=== PATIENT | male | born 1945 | race Caucasian/White ===

== ENCOUNTER 2022-05-22 21:20 | Inpatient (IN) | payer MEDICARE ==
[2022-05-22] MEDS ORDERED: Ondansetron ODT 4 MG TAB SL PRN (23:45)
[2022-05-22] MEDS ORDERED: Ondansetron PF 4 MG/2 ML Vial IVP PRN (23:45)
[2022-05-22 23:48] VITALS: BMI 27.6
[2022-05-22] MEDS ORDERED: Sodium Chloride 0.9% 1,000 ML IV SCH (23:59)
[2022-05-23] MEDS ORDERED: Acetaminophen 650 MG Suppository PR PRN (01:54)
[2022-05-23] MEDS ORDERED: Sodium Chloride 0.9% 1,000 ML IV SCH (01:56)
[2022-05-23] MEDS ORDERED: Morphine 4 MG/ML VIAL SLOW IVP SCH (02:15)
[2022-05-23] MEDS: Sodium Chloride 0.9% 1,000 ML IV SCH ×2 (02:16→06:47)
[2022-05-23] MEDS ORDERED: Promethazine HCl 12.5 MG in Sodium Chloride 0.9% 50 ML IVPB PRN (04:51)
[2022-05-23 05:45] LABS: #Lymphocytes 0.9 thou/uL (1.20-3.40); #Monocytes 0.9 thou/uL (0.11-0.59); #Neutrophils 7.6 thou/uL (1.40-6.50); %Basophils 0.2 % (0.0-1.0); %Eosinophils 0.1 % (0.0-10.0); %Lymphocytes 9.2 % (21.0-51.0); %Monocytes 9.1 % (0.0-10.0); %Neutrophils 81.4 % (42.0-75.0); Mean Corpuscular HGB CONC 33.5 g/dL (32.0-36.0); Mean Corpuscular Hemoglobin 29.8 pg (27.0-31.0); Mean Corpuscular Volume 88.9 fl (78.0-98.0); Mean Platelet Volume 7.7 fL (7.4-10.4); Platelet Count 182 10x3/uL (130-400); RBC Distribution Width 11.3 % (11.5-14.5); Red Blood Cell (RBC) Count 5.05 mill/uL (4.70-6.10); White Blood Cell (WBC) Count 9.3 10x3/uL (4.8-10.8)
[2022-05-23 06:09] LABS: Anion Gap 19 mmol/L (10-20); BUN (Urea Nitrogen) 8 mg/dL (8.4-25.7); Calc. Creatinine Clearance 95 mL/min (70-130); Calcium 8.9 mg/dL (7.8-10.44); Carbon Dioxide 25 mmol/L (23-31); Chloride 96 mmol/L (98-107); Estimated GFR 89; Glucose 131 mg/dL (83-110); Sodium 138 mmol/L (136-145)
[2022-05-23 06:11] LABS: Potassium 2.4 mmol/L (3.5-5.1)
[2022-05-23 06:13] LABS: ALT (SGPT) 23 U/L (8-55); AST (SGOT) 25 U/L (5-34); Albumin 3.6 g/dL (3.4-4.8); Alkaline Phosphatase 49 U/L (40-110); Bilirubin, Direct 0.6 mg/dL (0.1-0.3); Bilirubin, Total 1.5 mg/dL (0.2-1.2); Protein, Total 5.9 g/dL (5.8-8.1)
[2022-05-23] MEDS ORDERED: Potassium Chloride 20 MEQ in Premix Bag 1 BAG IVPB SCH (06:30)
[2022-05-23] MEDS ORDERED: Electrolyte Replacement Protocol 1 EACH FS SCH (06:30)
[2022-05-23] MEDS ORDERED: Magnesium 2 GM/50 ML(in water) 2 GM in Premix Bag 1 BAG IVPB SCH (06:30)
[2022-05-23 07:06] LABS: Magnesium 1.5 mg/dL (1.6-2.6)
[2022-05-23] MEDS ORDERED: Potassium Chloride 40 MEQ in Sodium Chloride 0.9% 500 ML IVPB SCH (07:15)
[2022-05-23] MEDS ORDERED: Prochlorperazine Maleate 5 MG TAB PO PRN (08:39)
[2022-05-23] MEDS ORDERED: Potassium Chloride 20 MEQ TAB PO SCH (09:00)
[2022-05-23] MEDS ORDERED: Electrolyte Replacement Protocol FS PRN (09:15)
[2022-05-23] MEDS ORDERED: MD-Gastroview 120 ML BOT ONE (09:29)
[2022-05-23] MEDS: HYDROcodone/Acetaminophen 10/325 mg Tablet PO PRN ×2 (09:38→20:07)
[2022-05-23] MEDS: Ondansetron PF 4 MG/2 ML Vial IVP PRN (09:38)
[2022-05-23] MEDS: Gabapentin 300 MG CAP PO SCH (09:39)
[2022-05-23] MEDS: Ezetimibe 10 MG TAB PO SCH (09:39)
[2022-05-23] MEDS: Potassium Chloride 20 MEQ TAB PO SCH ×2 (09:40→09:52)
[2022-05-23] MEDS: Chlorthalidone 25 MG TAB PO SCH (09:40)
[2022-05-23] MEDS: Tamsulosin HCl 0.4 MG CAP PO SCH (09:40)
[2022-05-23 11:24] LABS: Anion Gap 16 mmol/L (10-20); BUN (Urea Nitrogen) 8 mg/dL (8.4-25.7); Calc. Creatinine Clearance 90 mL/min (70-130); Calcium 8.7 mg/dL (7.8-10.44); Carbon Dioxide 29 mmol/L (23-31); Chloride 96 mmol/L (98-107); Estimated GFR 88; Glucose 138 mg/dL (83-110); Sodium 139 mmol/L (136-145)
[2022-05-23 11:31] LABS: Potassium 2.4 mmol/L (3.5-5.1)
[2022-05-23] MEDS ORDERED: Morphine 2 MG/ML VIAL SLOW IVP PRN (12:00)
[2022-05-23] MEDS ORDERED: Potassium Chloride 10 MEQ in Premix Bag 1 BAG IVPB SCH ×2 (12:15→15:00)
[2022-05-23 15:07] LABS: Anion Gap 20 mmol/L (10-20); BUN (Urea Nitrogen) 7 mg/dL (8.4-25.7); Calc. Creatinine Clearance 97 mL/min (70-130); Calcium 8.6 mg/dL (7.8-10.44); Carbon Dioxide 24 mmol/L (23-31); Chloride 97 mmol/L (98-107); Estimated GFR 90; Glucose 135 mg/dL (83-110); Magnesium 1.9 mg/dL (1.6-2.6); Phosphorus 2.7 mg/dL (2.3-4.7); Potassium 2.7 mmol/L (3.5-5.1); Sodium 138 mmol/L (136-145)
[2022-05-23] MEDS ORDERED: Famotidine/PF 20 mg/2ml Vial SLOW IVP SCH (15:17)
[2022-05-23] MEDS ORDERED: methylPREDNISolone Sod Succ 40 MG VIAL IVP SCH (15:19)
[2022-05-23] MEDS ORDERED: diphenhydrAMINE 50 MG/ML VIAL IVP SCH (15:30)
[2022-05-23] MEDS ORDERED: Morphine 2 MG/ML VIAL SLOW IVP SCH (16:15)
[2022-05-23] MEDS: Labetalol HCl 100 MG/20 ML VIAL SLOW IVP PRN ×2 (16:18→20:05)
[2022-05-23] MEDS: Magnesium 2 GM/50 ML(in water) 2 GM in Premix Bag 1 BAG IVPB SCH ×2 (19:44→20:03)
[2022-05-23] MEDS: Potassium Chloride 20 MEQ in Premix Bag 1 BAG IVPB SCH ×3 (19:44→23:39)
[2022-05-23] MEDS: Rosuvastatin 10 MG TAB PO SCH (20:07)
[2022-05-23] MEDS: Pantoprazole 40 MG VIAL IVP SCH (20:07)
[2022-05-23] MEDS: traZODone HCl 50 MG TAB PO SCH (20:07)
[2022-05-23] MEDS: Potassium Chloride 10 MEQ in Premix Bag 1 BAG IVPB SCH ×2 (20:29→20:30)
[2022-05-23 20:37] LABS: Potassium 3.1 mmol/L (3.5-5.1)
[2022-05-23] MEDS ORDERED: Scopolamine 1.5 mg/72 hour Patch TOP SCH (21:00)
[2022-05-24] MEDS: Potassium Chloride 20 MEQ in Premix Bag 1 BAG IVPB SCH ×5 (01:58→21:30)
[2022-05-24] MEDS: HYDROcodone/Acetaminophen 10/325 mg Tablet PO PRN ×2 (02:03→18:50)
[2022-05-24] MEDS: Sodium Chloride 0.9% 1,000 ML IV SCH ×3 (02:06→21:29)
[2022-05-24] MEDS: Labetalol HCl 100 MG/20 ML VIAL SLOW IVP PRN ×3 (04:35→16:57)
[2022-05-24 05:42] LABS: #Lymphocytes 0.6 thou/uL (1.20-3.40); #Monocytes 0.5 thou/uL (0.11-0.59); #Neutrophils 6.4 thou/uL (1.40-6.50); %Eosinophils 0.1 % (0.0-10.0); %Lymphocytes 7.8 % (21.0-51.0); %Monocytes 7.1 % (0.0-10.0); Hemoglobin 14.5 g/dL (14.0-18.0); Mean Corpuscular HGB CONC 34.2 g/dL (32.0-36.0); Mean Corpuscular Hemoglobin 30.7 pg (27.0-31.0); Mean Corpuscular Volume 89.7 fl (78.0-98.0); Mean Platelet Volume 7.7 fL (7.4-10.4); Platelet Count 145 10x3/uL (130-400); RBC Distribution Width 11.6 % (11.5-14.5); Red Blood Cell (RBC) Count 4.74 mill/uL (4.70-6.10); White Blood Cell (WBC) Count 7.5 10x3/uL (4.8-10.8)
[2022-05-24] MEDS ORDERED: Ketorolac Tromethamine 30 MG/ML VIAL IVP SCH (05:45)
[2022-05-24 06:01] LABS: Anion Gap 16 mmol/L (10-20); BUN (Urea Nitrogen) 11 mg/dL (8.4-25.7); Calc. Creatinine Clearance 85 mL/min (70-130); Calcium 8.9 mg/dL (7.8-10.44); Carbon Dioxide 30 mmol/L (23-31); Chloride 101 mmol/L (98-107); Estimated GFR 83; Glucose 163 mg/dL (83-110); Magnesium 2.3 mg/dL (1.6-2.6); Potassium 2.7 mmol/L (3.5-5.1); Sodium 144 mmol/L (136-145)
[2022-05-24] MEDS ORDERED: Potassium Chloride 20 MEQ TAB PO SCH (08:00)
[2022-05-24] MEDS: Pantoprazole 40 MG VIAL IVP SCH ×2 (08:26→21:29)
[2022-05-24] MEDS: Ondansetron PF 4 MG/2 ML Vial IVP PRN ×2 (08:42→21:28)
[2022-05-24] MEDS: Tamsulosin HCl 0.4 MG CAP PO SCH (11:59)
[2022-05-24] MEDS ORDERED: Potassium Phosphate 30 MMOL in Sodium Chloride 0.9% 250 ML 250 ML IVPB SCH (12:00)
[2022-05-24] MEDS: Scopolamine 1.5 mg/72 hour Patch TD SCH (12:08)
[2022-05-24 16:23] LABS: Anion Gap 11 mmol/L (10-20); BUN (Urea Nitrogen) 13 mg/dL (8.4-25.7); Calc. Creatinine Clearance 80 mL/min (70-130); Calcium 8.8 mg/dL (7.8-10.44); Carbon Dioxide 33 mmol/L (23-31); Chloride 102 mmol/L (98-107); Estimated GFR 77; Glucose 217 mg/dL (83-110); Magnesium 2.1 mg/dL (1.6-2.6); Phosphorus 2.5 mg/dL (2.3-4.7); Potassium 2.8 mmol/L (3.5-5.1); Sodium 143 mmol/L (136-145)
[2022-05-24] MEDS: Potassium Chloride 20 MEQ TAB PO SCH (16:55)
[2022-05-24] MEDS ORDERED: Potassium Chloride 20 MEQ in Premix Bag 1 BAG IVPB SCH (18:15)
[2022-05-24] MEDS: traZODone HCl 50 MG TAB PO SCH (21:29)
[2022-05-24] MEDS: Rosuvastatin 10 MG TAB PO SCH (21:29)
[2022-05-25] MEDS: HYDROcodone/Acetaminophen 10/325 mg Tablet PO PRN ×2 (01:11→06:37)
[2022-05-25] MEDS: Potassium Chloride 20 MEQ in Premix Bag 1 BAG IVPB SCH ×2 (01:11→05:40)
[2022-05-25] MEDS: Ondansetron PF 4 MG/2 ML Vial IVP PRN ×3 (04:20→22:01)
[2022-05-25 05:44] LABS: #Lymphocytes 0.9 thou/uL (1.20-3.40); #Monocytes 0.6 thou/uL (0.11-0.59); #Neutrophils 4.6 thou/uL (1.40-6.50); %Basophils 0.7 % (0.0-1.0); %Eosinophils 0.8 % (0.0-10.0); %Lymphocytes 14.9 % (21.0-51.0); %Monocytes 9.3 % (0.0-10.0); %Neutrophils 74.4 % (42.0-75.0); Hemoglobin 13.5 g/dL (14.0-18.0); Mean Corpuscular HGB CONC 33.6 g/dL (32.0-36.0); Mean Corpuscular Hemoglobin 30.6 pg (27.0-31.0); Mean Platelet Volume 8.1 fL (7.4-10.4); Platelet Count 144 10x3/uL (130-400); RBC Distribution Width 11.6 % (11.5-14.5); Red Blood Cell (RBC) Count 4.42 mill/uL (4.70-6.10); White Blood Cell (WBC) Count 6.2 10x3/uL (4.8-10.8)
[2022-05-25 06:12] LABS: Anion Gap 10 mmol/L (10-20); BUN (Urea Nitrogen) 12 mg/dL (8.4-25.7); Calc. Creatinine Clearance 95 mL/min (70-130); Calcium 8.4 mg/dL (7.8-10.44); Carbon Dioxide 35 mmol/L (23-31); Chloride 103 mmol/L (98-107); Estimated GFR 89; Glucose 136 mg/dL (83-110); Potassium 3.3 mmol/L (3.5-5.1); Sodium 145 mmol/L (136-145)
[2022-05-25] MEDS: Sodium Chloride 0.9% 1,000 ML IV SCH ×2 (06:38→17:44)
[2022-05-25] MEDS ORDERED: Magnesium 2 GM/50 ML(in water) 2 GM in Premix Bag 1 BAG IVPB SCH (08:00)
[2022-05-25] MEDS: Potassium Chloride 20 MEQ TAB PO SCH ×2 (08:54→17:42)
[2022-05-25] MEDS: Floranex 1 GM Packet PO SCH (08:55)
[2022-05-25] MEDS: Pantoprazole 40 MG VIAL IVP SCH (08:56)
[2022-05-25] MEDS: Ezetimibe 10 MG TAB PO SCH (08:56)
[2022-05-25] MEDS: Tamsulosin HCl 0.4 MG CAP PO SCH (08:57)
[2022-05-25] MEDS: Chlorthalidone 25 MG TAB PO SCH (09:01)
[2022-05-25] MEDS: traMADol HCl 50 MG TAB PO PRN ×2 (12:28→21:58)
[2022-05-25 14:32] LABS: Potassium 3.5 mmol/L (3.5-5.1)
[2022-05-25] MEDS: Gabapentin 300 MG CAP PO SCH ×2 (16:19→22:01)
[2022-05-25] MEDS: traZODone HCl 50 MG TAB PO SCH (22:01)
[2022-05-25] MEDS: Rosuvastatin 10 MG TAB PO SCH (22:01)
[2022-05-26] MEDS: Sodium Chloride 0.9% 1,000 ML IV SCH ×2 (03:25→13:16)
[2022-05-26] MEDS: traMADol HCl 50 MG TAB PO PRN ×3 (06:12→19:59)
[2022-05-26 06:39] LABS: #Eosinphils 0.3 thou/uL (0.0-0.7); #Lymphocytes 1.2 thou/uL (1.20-3.40); #Monocytes 0.5 thou/uL (0.11-0.59); #Neutrophils 3.8 thou/uL (1.40-6.50); %Basophils 0.7 % (0.0-1.0); %Lymphocytes 20.4 % (21.0-51.0); %Monocytes 7.7 % (0.0-10.0); %Neutrophils 65.2 % (42.0-75.0); Hemoglobin 13.9 g/dL (14.0-18.0); Mean Corpuscular HGB CONC 33.2 g/dL (32.0-36.0); Mean Corpuscular Hemoglobin 30.9 pg (27.0-31.0); Mean Corpuscular Volume 93.3 fl (78.0-98.0); Mean Platelet Volume 9.1 fL (7.4-10.4); Platelet Count 128 10x3/uL (130-400); RBC Distribution Width 11.6 % (11.5-14.5); Red Blood Cell (RBC) Count 4.49 mill/uL (4.70-6.10); White Blood Cell (WBC) Count 5.8 10x3/uL (4.8-10.8)
[2022-05-26] MEDS: Tamsulosin HCl 0.4 MG CAP PO SCH (08:37)
[2022-05-26] MEDS: Potassium Chloride 20 MEQ TAB PO SCH ×2 (08:37→18:06)
[2022-05-26] MEDS: HYDROcodone/Acetaminophen 10/325 mg Tablet PO PRN ×3 (08:37→21:37)
[2022-05-26] MEDS: Ezetimibe 10 MG TAB PO SCH (08:37)
[2022-05-26] MEDS: Gabapentin 300 MG CAP PO SCH ×3 (08:38→21:40)
[2022-05-26] MEDS: Labetalol HCl 100 MG/20 ML VIAL SLOW IVP PRN ×2 (08:39→13:17)
[2022-05-26] MEDS: Floranex 1 GM Packet PO SCH (09:41)
[2022-05-26] MEDS: Chlorthalidone 25 MG TAB PO SCH (09:41)
[2022-05-26 11:24] LABS: Lactic Acid 1.3 mmol/L (0.5-2.2)
[2022-05-26 11:36] LABS: Anion Gap 13 mmol/L (10-20); BUN (Urea Nitrogen) 9 mg/dL (8.4-25.7); Calc. Creatinine Clearance 102 mL/min (70-130); Carbon Dioxide 21 mmol/L (23-31); Chloride 103 mmol/L (98-107); Estimated GFR 91; Glucose 182 mg/dL (83-110); Magnesium 1.7 mg/dL (1.6-2.6); Potassium 4.3 mmol/L (3.5-5.1); Sodium 133 mmol/L (136-145)
[2022-05-26] MEDS ORDERED: Magnesium 2 GM/50 ML(in water) 2 GM in Premix Bag 1 BAG IVPB SCH (13:45)
[2022-05-26] MEDS ORDERED: hydrALAZINE 20 MG/ML VIAL SLOW IVP PRN (14:16)
[2022-05-26] MEDS ORDERED: NIFEdipine XL 60 MG TAB PO SCH (14:30)
[2022-05-26] MEDS: NIFEdipine XL 60 MG TAB PO SCH (15:04)
[2022-05-26] MEDS: Ondansetron PF 4 MG/2 ML Vial IVP PRN ×2 (15:16→21:59)
[2022-05-26] MEDS: Rosuvastatin 10 MG TAB PO SCH (21:39)
[2022-05-26] MEDS: traZODone HCl 50 MG TAB PO SCH (21:40)
[2022-05-26] MEDS ORDERED: HumaLOG 300 UNITS/3 ML VIAL SC PRN ×2 (22:56)
[2022-05-26] MEDS ORDERED: Dextrose 50% Abboject 50 ML SYRINGE SLOW IVP PRN (22:56)
[2022-05-26] MEDS ORDERED: Dextrose 5% in Water 1,000 ML IV PRN (22:56)
[2022-05-27] MEDS: Sodium Chloride 0.9% 1,000 ML IV SCH ×2 (00:08→08:33)
[2022-05-27] MEDS: traMADol HCl 50 MG TAB PO PRN ×2 (03:31→10:03)
[2022-05-27] MEDS: HYDROcodone/Acetaminophen 10/325 mg Tablet PO PRN ×2 (05:32→14:16)
[2022-05-27 06:10] LABS: #Basophils 0.1 thou/uL (0.0-0.2); #Eosinphils 0.3 thou/uL (0.0-0.7); #Lymphocytes 1.1 thou/uL (1.20-3.40); #Monocytes 0.4 thou/uL (0.11-0.59); #Neutrophils 2.7 thou/uL (1.40-6.50); %Basophils 1.4 % (0.0-1.0); %Eosinophils 6.4 % (0.0-10.0); %Lymphocytes 23.7 % (21.0-51.0); %Monocytes 9.1 % (0.0-10.0); %Neutrophils 59.6 % (42.0-75.0); Hemoglobin 13.6 g/dL (14.0-18.0); Mean Corpuscular HGB CONC 34.3 g/dL (32.0-36.0); Mean Corpuscular Hemoglobin 31.6 pg (27.0-31.0); Mean Corpuscular Volume 92.2 fl (78.0-98.0); Mean Platelet Volume 8.2 fL (7.4-10.4); Platelet Count 119 10x3/uL (130-400); RBC Distribution Width 11.4 % (11.5-14.5); Red Blood Cell (RBC) Count 4.32 mill/uL (4.70-6.10); White Blood Cell (WBC) Count 4.5 10x3/uL (4.8-10.8)
[2022-05-27 06:33] LABS: Anion Gap 10 mmol/L (10-20); BUN (Urea Nitrogen) 6 mg/dL (8.4-25.7); Calc. Creatinine Clearance 106 mL/min (70-130); Calcium 8.1 mg/dL (7.8-10.44); Carbon Dioxide 32 mmol/L (23-31); Chloride 99 mmol/L (98-107); Estimated GFR 92; Glucose 124 mg/dL (83-110); Potassium 3.5 mmol/L (3.5-5.1); Sodium 137 mmol/L (136-145)
[2022-05-27] MEDS: NIFEdipine XL 60 MG TAB PO SCH (08:31)
[2022-05-27] MEDS: Tamsulosin HCl 0.4 MG CAP PO SCH (08:32)
[2022-05-27] MEDS: Gabapentin 300 MG CAP PO SCH ×2 (08:32→14:15)
[2022-05-27] MEDS: Ezetimibe 10 MG TAB PO SCH (08:32)
[2022-05-27] MEDS: Potassium Chloride 20 MEQ TAB PO SCH (08:32)
[2022-05-27] MEDS: Chlorthalidone 25 MG TAB PO SCH (08:33)
[2022-05-27] MEDS: Floranex 1 GM Packet PO SCH (08:33)
[2022-05-27] MEDS: Scopolamine 1.5 mg/72 hour Patch TD SCH (10:05)
[2022-05-27 13:17] VITALS: BP 155/75; TEMP 97.5
[2022-05-27] MEDS ORDERED: Metoclopramide HCl 10 MG/2 ML VIAL IVP SCH (14:00)
== END 2022-05-27 15:18 | disposition home or self-care (01) | DRG 74 ==
LOC: MSONC 21:20
PROVIDERS: ADMIT Internal Medicine; ATTEND Internal Medicine
PROC: 0D9670Z Drainage of Stomach with Drainage Device, Via Natural or Artificial Opening (ICD-10-PCS; principal; 2022-05-22)
DX: E11.43 Type 2 diabetes mellitus with diabetic autonomic (poly)neuropathy (principal); K56.7 Ileus, unspecified; K31.1 Adult hypertrophic pyloric stenosis; T40.2X5A Adverse effect of other opioids, initial encounter; Z66 Do not resuscitate; I10 Essential (primary) hypertension; G89.29 Other chronic pain; M54.9 Dorsalgia, unspecified; N28.89 Other specified disorders of kidney and ureter; E87.6 Hypokalemia; E86.0 Dehydration; R11.2 Nausea with vomiting, unspecified; E78.00 Pure hypercholesterolemia, unspecified; K31.84 Gastroparesis; Z88.1 Allergy status to other antibiotic agents; Z91.041 Radiographic dye allergy status; Z91.013 Allergy to seafood; Z90.49 Acquired absence of other specified parts of digestive tract; Z85.828 Personal history of other malignant neoplasm of skin; Z82.3 Family history of stroke; Z82.49 Family history of ischemic heart disease and other diseases of the circulatory system; Z79.899 Other long term (current) drug therapy
CPT/HCPCS: 36415; 36416; 74018; 74176; 74250; 76770; 80048; 80053; 80076; 81003; 81015; 83605; 83690; 83735; 84100; 85025; 93005; 96361; 96365; 96367; 96375; 96376; C9113; J1200; J1815; J1885; J2270; J2272; J2405; J2550; J2765; J2920; J3475; J3480; J7030; J7050; Q9963; S0028